=== PATIENT | female | born 1955 | race Hispanic/Latino ===

== ENCOUNTER 2021-11-04 11:29 | Emergency (ER) | payer MEDICARE ==
[2021-11-04 11:48] VITALS: BP 136/58
--- NOTE | 2021-11-04 13:26 | Cat Scan Report ---
CT head without contrast INDICATION : fall, head injury. TECHNIQUE: Axial imaging performed from the skull apex through the skull base without the use of con trast. All CT scans at this location are performed using CT dose reduction for ALARA by means of aut omated exposure control. COMPARISON: None FINDINGS: Parenchyma: No acute intracranial hemorrhage or parenchymal abnormality. Ventricles: Ventricles are normal in size and appear symmetric. Soft tissues: Soft tissues including the orbits appear normal. Bones: No acute osseous abnormality. Sinuses: Sinuses and mastoid air cells are clear. IMPRESSION: No acute abnormality. Signer Name: Efra Lou MD Signed: 11/04/2021 1:21 PM Workstation Name: [id number]
--- NOTE | 2021-11-04 13:28 | Cat Scan Report ---
CT cervical spine without contrast INDICATION: fall, head injury.. TECHNIQUE: Axial imaging performed through the cervical spine without the use of contrast. Sagittal and coronal reconstructed images were also reviewed. All CT scans at this location are performed us ing CT dose reduction for CÉSARRA by means of automated exposure control. COMPARISON: None FINDINGS: Alignment: Reversal of normal cervical lordosis in the mid cervical spine. Bones: There is no acute osseous abnormality. Mild multilevel discogenic DJD is present. Soft tissues: No acute abnormality identified. Incidentally, the thyroid is grossly enlarged and het erogeneous, containing coarse internal calcifications especially in the left lobe. IMPRESSION: 1. No acute abnormality. 2. Thyroid findings as above. Recommend follow-up thyroid ultrasound on a nonemergent basis (not the current visit) for more thorough evaluation. Signer Name: Efra Lou MD Signed: 11/04/2021 1:23 PM Workstation Name: [id number]
--- NOTE | 2021-11-04 13:38 | Emergency Department Report ---
ED Fall HPI - General Chief Complaint: Fall Stated Complaint: CUT HEAD/HEAD NUMB Time Seen by Provider: 11/04/21 11:52 Source: patient Mode of arrival: Ambulatory - History of Present Illness Initial Comments: 66-year-old white female with no past medical history presents to the emergency department for evaluation of. She states that she hit her head on the concrete but denies loss of consciousness, vision changes, nausea, or vomiting. She states that she had a small laceration to her right forehead which she cleaned and put together with Steri-Strips but since then, she has been having numbness to the right side of her head. Complaint: fall -: Sudden, days(s) (1) Fall From: other (Ground-level) When Fall Occurred: [address] Fall Witnessed: yes, by bystander Place Fall Occurred: street Loss of Consciousness: none Prolonged Down Time?: no Symptoms Prior to Fall: none Location: head Severity scale (0 -10): 0 Associated Symptoms: numbness (To right side of head) - Related Data Allergies Allergy/AdvReac Type Severity Reaction Status Date / Time codeine Allergy Unknown Verified 11/04/21 11:44 ED Review of Systems ROS: Stated complaint: CUT HEAD/HEAD NUMB Other details as noted in HPI Comment: All other systems reviewed and negative Constitutional: denies: chills, fever Eyes: denies: eye pain, vision change ENT: denies: ear pain, hearing loss, epistaxis Respiratory: denies: cough, shortness of breath, SOB with exertion, SOB at rest Cardiovascular: denies: chest pain, palpitations, dyspnea on exertion, orthopnea, edema, syncope, paroxysmal nocturnal dyspnea Gastrointestinal: denies: abdominal pain, nausea, vomiting Musculoskeletal: denies: back pain Neurological: numbness. denies: headache, weakness, paresthesias, confusion, abnormal gait, vertigo ED Past Medical Hx - Past Medical History Previous Medical History?: No - Surgical History Past Surgical History?: Yes Hx Appendectomy: Yes Additional Surgical History: Right wrist, Hysterectmy ED Physical Exam - General Limitations: No Limitations General appearance: alert, in no apparent distress - Head Head exam: Present: normocephalic. Absent: atraumatic - Expanded Head Exam Expanded 1 - Laceration noted. No bleeding noted well approximated with Steri-Strip in place. - Eye Eye exam: Present: normal appearance. Absent: conjunctival injection - Neck Neck exam: Present: normal inspection, full ROM. Absent: tenderness, meningismus - Respiratory Respiratory exam: Present: normal lung sounds bilaterally. Absent: respiratory distress, wheezes, rales, rhonchi, stridor, chest wall tenderness - Cardiovascular Cardiovascular Exam: Present: regular rate, normal heart sounds - GI/Abdominal GI/Abdominal exam: Present: soft, normal bowel sounds. Absent: distended, tenderness, guarding, rebound, rigid - Extremities Exam Extremities exam: Present: normal inspection - Back Exam Back exam: Present: normal inspection. Absent: tenderness, paraspinal tenderness, vertebral tenderness - Neurological Exam Neurological exam: Present: alert, oriented X3 - Expanded Neurological Exam Expanded Patient oriented to: Present: person, place, time Speech: Present: fluid speech Cranial nerves: EOM's Intact: Normal, Gag Reflex: Normal, Tongue Deviation: Normal, Nystagmus: Normal, Facial Sensation: Normal Ataxia: Absent: yes Cerebellar function: Finger to Nose: Normal, Romberg: Normal Upper motor neuron: Pronator Drift: Normal Sensory exam: Upper Extremity Light Touch: Normal, Lower Extremity Light Touch: Normal Motor strength exam: RUE: 5, LUE: 5, RLE: 5, LLE: 5 Best Eye Response ([place]): (4) open spontaneously Best Motor Response ([place]): (6) obeys commands Best Verbal Response ([place]): (5) oriented [place] Total: 15 - Psychiatric Psychiatric exam: Present: normal affect, normal mood - Skin Skin exam: Present: warm, dry, intact, normal color ED Course Vital Signs 11/04/21 11:45 Temperature 97.7 F Pulse Rate 69 Respiratory 20 Rate Blood Pressure 136/58 [Right] O2 Sat by Pulse 97 Oximetry ED Medical Decision Making - Radiology Data Radiology results: report reviewed CT head without contrast: FINDINGS: Parenchyma: No acute intracranial hemorrhage or parenchymal abnormality. Ventricles: Ventricles are normal in size and appear symmetric. Soft tissues: Soft tissues including the orbits appear normal. Bones: No acute osseous abnormality. Sinuses: Sinuses and mastoid air cells are clear. IMPRESSION: No acute abnormality. CT cervical spine without contrast: FINDINGS: Alignment: Reversal of normal cervical lordosis in the mid cervical spine. Bones: There is no acute osseous abnormality. Mild multilevel discogenic DJD is present. Soft tissues: No acute abnormality identified. Incidentally, the thyroid is grossly enlarged and heterogeneous, containing coarse internal calcifications especially in the left lobe. IMPRESSION: 1. No acute abnormality. 2. Thyroid findings as above. Recommend follow-up thyroid ultrasound on a nonemergent basis (not the current visit) for more thorough evaluation. - Medical Decision Making 66-year-old white female with no past medical history presents to the emergency department for evaluation of. She states that she hit her head on the concrete but denies loss of consciousness, vision changes, nausea, or vomiting. She states that she had a small laceration to her right forehead which she cleaned and put together with Steri-Strips but since then, she has been having numbness to the right side of her head. Patient continues to deny headache, nausea vomiting, and vision changes. CT of head and neck without contrast without any acute abnormalities noted. She was noted to have enlarged thyroid gland on CT scan. Results reviewed with patient and she was notified of enlarged thyroid gland advised to follow-up with primary care provider for further evaluation and management. She was advised to follow- up with her primary care provider for worsening symptoms or no improvement in numbness to her right forehead. She verbalized understanding of and agreement with plan of care. Critical care attestation.: If time is entered above; I have spent that time in minutes in the direct care of this critically ill patient, excluding procedure time. ED Disposition Clinical Impression: Enlarged thyroid gland Fall Qualifiers: Encounter type: initial encounter Qualified Code(s): W19.XXXA - Unspecified fall, initial encounter Head injury Qualifiers: Encounter type: initial encounter Qualified Code(s): S09.90XA - Unspecified injury of head, initial encounter Disposition: HOME / SELF CARE / HOMELESS Is pt being admited?: No Does the pt Need Aspirin: No Condition: Stable Instructions: Fall Prevention in the Home, Adult, [id number], Head Injury, Adult, [id number] Additional Instructions: Noted to have enlarged thyroid gland on CAT scan. No acute abnormalities noted. Follow-up with primary care provider for further evaluation and management. Return to the emergency department for any concerning symptoms. Referrals: ABIMBOLA HOFFMAN MD [Primary Care Provider] - 3-5 Days Time of Disposition: 13:38
== END 2021-11-04 13:50 | disposition home or self-care (01) ==
LOC: ED 11:29
DX: S01.91XA Laceration without foreign body of unspecified part of head, initial encounter (principal); S09.90XA Unspecified injury of head, initial encounter; E04.9 Nontoxic goiter, unspecified; Z98.890 Other specified postprocedural states; W19.XXXA Unspecified fall, initial encounter; Y93.89 Activity, other specified; Y92.89 Other specified places as the place of occurrence of the external cause; Y99.8 Other external cause status
CPT/HCPCS: 70450; 72125; 99283